=== PATIENT | male | born 1960 | race Caucasian/White ===

== ENCOUNTER 2016-10-26 14:30 | Emergency (ER) | payer MEDICARE, OTHER ==
[~2016-10-26] VITALS: Ht 188 cm; Wt 85.0 kg
[~2016-10-26 14:30] MED LIST: ACET500T68 PO; CHOL10003 PO; CYAN10005 IM; CYCL10TA2 PO; DIAZ5TAB4 PO; DIPH50CA PO; GABA600T2 PO; GABA800T2 PO; PHEN100C PO; QUET400T4 PO; RANI300T PO; SILD100T PO; TIZA4TAB PO; TRAZ50TA15 PO
[2016-10-26 15:09] LABS: BASO # 0.1 x10^3/uL (0.0-0.2); BASO % 1 % (0-3); EOS # 0.1 x10^3/uL (0.0-0.7); EOS % 1 % (0-3); HEMATOCRIT 52.9 % (39.0-53.0); HEMOGLOBIN 17.9 g/dL (13.0-17.5); LYMPH # 3.3 x10^3/uL (1.0-4.8); LYMPH % 27 % (24-48); MEAN CORPUSCULAR HEMOGLOBIN 32 pg (25-35); MEAN CORPUSCULAR HGB CONC 34 g/dL (31-37); MEAN CORPUSCULAR VOLUME 95 fL (79-100); MONO # 1.3 x10^3/uL (0.0-1.1); MONO % 11 % (0-9); NEUT # 7.5 x10^3uL (1.8-7.7); NEUT % 61 % (31-73); PLATELET COUNT 283 x10^3/uL (140-400); RED BLOOD COUNT 5.57 x10^6/uL (4.30-5.70); RED CELL DISTRIBUTION WIDTH 14.1 % (11.5-14.5); WHITE BLOOD COUNT 12.3 x10^3/uL (4.0-11.0)
[2016-10-26 15:16] LABS: ACETAMIN < 2.0 mcg/mL (10-30); ETHANOL 168 mg/dL (0-10); SALIC 3.4 mg/dL (2.8-20.0)
[2016-10-26 15:18] LABS: CALCIUM 9.3 mg/dL (8.5-10.1); CREATININE 1.3 mg/dL (0.7-1.3); GFR 57.3; POTASSIUM 3.5 mmol/L (3.5-5.1); TOTAL BILIRUBIN 0.3 mg/dL (0.2-1.0)
[2016-10-26 16:11] LABS: AMPHETAMINE/METHAMPHETAMINE NEG (NEG); BARBITURATES NEG (NEG); BENZODIAZEPINES POS (NEG); CANNABINOIDS NEG (NEG); COCAINE NEG (NEG); METHADONE NEG (NEG); OPIATES NEG (NEG); PHENCYCLIDINE NEG (NEG)
[2016-10-26 16:18] LABS: BILIRUBIN,URINE NEG (NEG); CLARITY,URINE CLEAR; COLOR,URINE YELLOW; GLUCOSE,URINE NEG (NEG); NITRITE,URINE NEG (NEG); UROBILINOGEN,URINE 0.2 mg/dL (0.2 mg/dL)
[2016-10-26 16:19] LABS: BACTERIA,URINE 0 /HPF (0-FEW)
--- NOTE | 2016-10-26 17:27 | ED.ADGEN ---
Past History Past Medical History: Anxiety, Bipolar, Depression, Hypertension, Other Past Surgical History: Other Alcohol Use: Occasionally Drug Use: None Adult General Chief Complaint Chief Complaint Suicidal ideation HPI HPI Patient is a 56 year old male who presents with suicidal ideation. He has long- standing depression and anxiety, PTSD. He takes Seroquel, Valium for his psychiatric disorders. He says he's having thoughts of hurting himself by overdosing on his pills or jumping from his patio window. Patient's been seen and treated from similar symptoms in the past. He denies any did her took anything to harm himself today. He is requesting to go to [place]. Review of Systems Review of Systems Constitutional: Denies fever or chills [] Eyes: Denies change in visual acuity, redness, or eye pain [] HENT: Denies nasal congestion or sore throat [] Respiratory: Denies cough or shortness of breath [] Cardiovascular: Denies chest pain GI: Denies abdominal pain, nausea, vomiting, bloody stools or diarrhea [] : Denies dysuria or hematuria [] Musculoskeletal: Denies back pain or joint pain [] Integument: Denies rash or skin lesions [] Neurologic: Denies headache, focal weakness or sensory changes [] Allergies Allergies Allergies Coded Allergies Type Severity Reaction Last Updated Verified Sulfa (Sulfonamide Antibiotics) Allergy Severe Unknown 06/13/15 Yes fluoxetine Allergy Intermediate rage 06/13/15 No risperidone Allergy Intermediate high anxiety 06/13/15 No topiramate Allergy Intermediate rage 06/13/15 No Physical Exam Physical Exam Constitutional: Well developed, well nourished, no acute distress, non-toxic appearance. [] HENT: Normocephalic, atraumatic, bilateral external ears normal, oropharynx moist, no oral exudates, nose normal. [] Eyes: PERRLA, EOMI, conjunctiva normal, no discharge. [] Neck: Normal range of motion, no tenderness, supple, no stridor. [] Cardiovascular:Heart rate regular rhythm, no murmur [] Lungs & Thorax: Bilateral breath sounds clear to auscultation [] Abdomen: Bowel sounds normal, soft, no tenderness, no masses, no pulsatile masses. [] Skin: Warm, dry, no erythema, no rash. [] Back: No tenderness, no CVA tenderness. [] Extremities: No tenderness, no cyanosis, no clubbing, ROM intact, no edema. [] Neurologic: Alert and oriented X 3, normal motor function, normal sensory function, no focal deficits noted. [] Psychologic: Suicidal, odd affect Current Patient Data Vital Signs Vital Signs Date Time Temp Pulse Resp B/P Pulse Ox O2 Delivery O2 Flow Rate FiO2 10/26/16 14:30 98.2 94 18 97 Room Air Lab Results Laboratory Tests Test 10/26/16 14:47 10/26/16 15:14 White Blood Count 12.3x10^3/uL (4.0-11.0) H Red Blood Count 5.57x10^6/uL (4.30-5.70) Hemoglobin 17.9g/dL (13.0-17.5) H Hematocrit 52.9% (39.0-53.0) Mean Corpuscular Volume 95fL (79-100) Mean Corpuscular Hemoglobin 32pg (25-35) Mean Corpuscular Hemoglobin Concent 34g/dL (31-37) Red Cell Distribution Width 14.1% (11.5-14.5) Platelet Count 283x10^3/uL (140-400) Neutrophils (%) (Auto) 61% (31-73) Lymphocytes (%) (Auto) 27% (24-48) Monocytes (%) (Auto) 11% (0-9) H Eosinophils (%) (Auto) 1% (0-3) Basophils (%) (Auto) 1% (0-3) Neutrophils # (Auto) 7.5x10^3uL (1.8-7.7) Lymphocytes # (Auto) 3.3x10^3/uL (1.0-4.8) Monocytes # (Auto) 1.3x10^3/uL (0.0-1.1) H Eosinophils # (Auto) 0.1x10^3/uL (0.0-0.7) Basophils # (Auto) 0.1x10^3/uL (0.0-0.2) Sodium Level 142mmol/L (136-145) Potassium Level 3.5mmol/L (3.5-5.1) Chloride Level 106mmol/L (98-107) Carbon Dioxide Level 21mmol/L (21-32) Anion Gap 15 (6-14) H Blood Urea Nitrogen 10mg/dL (8-26) Creatinine 1.3mg/dL (0.7-1.3) Estimated GFR (Cockcroft-Gault) 57.3 BUN/Creatinine Ratio 8 (6-20) Glucose Level 90mg/dL (70-99) Calcium Level 9.3mg/dL (8.5-10.1) Total Bilirubin 0.3mg/dL (0.2-1.0) Aspartate Amino Transferase (AST) 11U/L (15-37) L Alanine Aminotransferase (ALT) 20U/L (16-63) Alkaline Phosphatase 99U/L (46-116) Total Protein 8.0g/dL (6.4-8.2) Albumin 4.0g/dL (3.4-5.0) Albumin/Globulin Ratio 1.0 (1.0-1.7) Salicylates Level 3.4mg/dL (2.8-20.0) Salicylate Last Dose Date Unknown Salicylate Last Dose Time Unknown Acetaminophen Level < 2.0mcg/mL (10-30) L Acetaminophen Last Dose Date Unknown Acetaminophen Last Dose Time Unknown Ethyl Alcohol Level 168mg/dL (0-10) H Urine Collection Type Unknown Urine Color Yellow Urine Clarity Clear Urine pH 5.5 Urine Specific [place] 1.010 Urine Protein Trace (NEG-TRACE) Urine Glucose (UA) Negmg/dL (NEG) Urine Ketones (Stick) Negmg/dL (NEG) Urine Blood Neg (NEG) Urine Nitrite Neg (NEG) Urine Bilirubin Neg (NEG) Urine Urobilinogen Dipstick 0.2mg/dL (0.2 mg/dL) Urine Leukocyte Esterase Neg (NEG) Urine RBC 1-2/HPF (0-2) Urine WBC 1-4/HPF (0-4) Urine Squamous Epithelial Cells None/LPF Urine Bacteria 0/HPF (0-FEW) Urine Opiates Screen Neg (NEG) Urine Methadone Screen Neg (NEG) Urine Barbiturates Neg (NEG) Urine Phencyclidine Screen Neg (NEG) Urine Amphetamine/Methamphetamine Neg (NEG) Urine Benzodiazepines Screen Pos (NEG) Urine Cocaine Screen Neg (NEG) Urine Cannabinoids Screen Neg (NEG) Urine Ethyl Alcohol Pos (NEG) EKG EKG [] Radiology/Procedures Radiology/Procedures [] Course & Med Decision Making Course & Med Decision Making Pertinent Labs and Imaging studies reviewed. (See chart for details) Patient direct observation by staff. Labs and urine did not show any acute abnormalities. Contacted [place] to see if they would accept this patient. We are waiting return call from them. Care was transferred to Dr. Atkinson at 1730 Final Impression Final Impression suicidal ideation [] Problems: Dragon Disclaimer Dragon Disclaimer This electronic medical record was generated, in whole or in part, using a voice recognition dictation system. RENARD HARTMANN MD Oct 26, 2016 17:26
[2016-10-26 18:00] VITALS: BP 136/80
[2016-10-26] MEDS ORDERED: DIAZEPAM 5 MG TABLET PO ONE (18:00)
[2016-10-26] MEDS ORDERED: FAMOTIDINE 20 MG TABLET ONE (19:52)
[2016-10-26] MEDS ORDERED: SUCRALFATE 1 GM TABLET. PO ONE ×2 (19:56→20:00)
[2016-10-26] MEDS ORDERED: FAMOTIDINE 20 MG TABLET PO ONE (20:00)
== END 2016-10-26 21:31 | disposition short-term general hospital (02) ==
LOC: ER 14:30
DX: R45.851 Suicidal ideations (principal); F41.9 Anxiety disorder, unspecified; I10 Essential (primary) hypertension; F43.10 Post-traumatic stress disorder, unspecified; Z88.2 Allergy status to sulfonamides; Z88.8 Allergy status to other drugs, medicaments and biological substances; F31.9 Bipolar disorder, unspecified
CPT/HCPCS: 36415; 80053; 80305; 80320; 81001; 85027; 99285; G6038; G0480; G0481; 80196

== ENCOUNTER 2016-12-25 19:03 | Observation (INO) | payer MEDICARE, OTHER ==
[~2016-12-25] VITALS: Ht 188 cm; Wt 83.2 kg
[~2016-12-25 19:03] MED LIST changes: +CYCL-331 PO; -CYCL10TA2 PO
[2016-12-25] MEDS ORDERED: NITROGLYCERIN SUBLINGUAL 0.4 MG BOTTLE OF 25. SL PRN ×2 (19:15→21:15)
--- NOTE | 2016-12-25 19:20 | EKG ---
[address] [address] Test Date: 2016-12-25 Test Time: 19:17:48 Pat Name: ESTEBAN CONTRERAS Department: Room: Gender: M Continuous Improvement Specialist: : [id number] Requested By: NING BONILLA Order Number: [id number] Reading MD: Davion Noriega Measurements Intervals Strong Rate: 98 P: 46 VA: 146 QRS: -38 QRSD: 106 T: 43 QT: 352 QTc: 451 Interpretive Statements SINUS RHYTHM RBBB Electronically Signed On 12-27-2016 11:02:46 CDT by Davion Noriega
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
[2016-12-25] MEDS ORDERED: ASPIRIN 81 MG TAB.CHEW PO ONE (19:30)
[2016-12-25 20:05] LABS: BASO # 0.1 x10^3/uL (0.0-0.2); BASO % 1 % (0-3); EOS # 0.1 x10^3/uL (0.0-0.7); EOS % 1 % (0-3); HEMATOCRIT 49.2 % (39.0-53.0); HEMOGLOBIN 16.9 g/dL (13.0-17.5); LYMPH # 4.2 x10^3/uL (1.0-4.8); LYMPH % 41 % (24-48); MEAN CORPUSCULAR HEMOGLOBIN 32 pg (25-35); MEAN CORPUSCULAR HGB CONC 34 g/dL (31-37); MEAN CORPUSCULAR VOLUME 92 fL (79-100); MONO # 1.4 x10^3/uL (0.0-1.1); MONO % 14 % (0-9); NEUT # 4.4 x10^3uL (1.8-7.7); NEUT % 44 % (31-73); PLATELET COUNT 276 x10^3/uL (140-400); RED BLOOD COUNT 5.35 x10^6/uL (4.30-5.70); RED CELL DISTRIBUTION WIDTH 13.6 % (11.5-14.5); WHITE BLOOD COUNT 10.2 x10^3/uL (4.0-11.0)
[2016-12-25 20:09] LABS: AMPHETAMINE/METHAMPHETAMINE NEG (NEG); BARBITURATES NEG (NEG); BENZODIAZEPINES POS (NEG); CANNABINOIDS NEG (NEG); COCAINE NEG (NEG); METHADONE NEG (NEG); OPIATES NEG (NEG); PHENCYCLIDINE NEG (NEG)
[2016-12-25 20:12] LABS: BILIRUBIN,URINE NEG (NEG); CLARITY,URINE CLEAR; COLOR,URINE STRAW; GLUCOSE,URINE NEG (NEG); NITRITE,URINE NEG (NEG); UROBILINOGEN,URINE 0.2 mg/dL (0.2 mg/dL)
[2016-12-25 20:13] LABS: BACTERIA,URINE 0 /HPF (0-FEW); RBC,URINE 0 /HPF (0-2); SQUAMOUS EPITHELIAL CELL,UR OCC /LPF; WBC,URINE 0 /HPF (0-4)
[2016-12-25 20:14] LABS: ACETAMIN < 2.0 mcg/mL (10-30); SALIC 3.7 mg/dL (2.8-20.0)
[2016-12-25 20:17] LABS: ALBUMIN 3.8 g/dL (3.4-5.0); ALBUMIN/GLOBULIN RATIO 1.1 (1.0-1.7); CALCIUM 8.4 mg/dL (8.5-10.1); CREATININE 1.2 mg/dL (0.7-1.3); GFR 62.9; MAGNESIUM 2.2 mg/dL (1.8-2.4); TOTAL BILIRUBIN 0.5 mg/dL (0.2-1.0); TOTAL PROTEIN 7.2 g/dL (6.4-8.2)
[2016-12-25] MEDS ORDERED: POTASSIUM CHLORIDE 20 MEQ TABLET.ER. PO ONE (20:45)
[2016-12-25] MEDS ORDERED: MVI, ADULT NO.4 WITH VIT K 10 ML, FOLIC ACID SYRINGE for ER 1 MG, THIAMINE 100 MG in IV... IV SCH ×4 (20:45)
[2016-12-25] MEDS ORDERED: THIAMINE 200 MG/2 ML VIAL. IV ONE (21:06)
[2016-12-25] MEDS ORDERED: IV NORMAL SALINE 1,000ML 1,000 ML ONE (21:06)
[2016-12-25] MEDS ORDERED: FOLIC ACID 5 MG/ML SYRINGE for ER IV ONE (21:07)
[2016-12-25] MEDS ORDERED: MVI, ADULT NO.4 WITH VIT K 10 ML VIAL IV ONE (21:07)
[2016-12-25] MEDS ORDERED: ACETAMINOPHEN 325 MG TABLET PO PRN (21:15)
[2016-12-25] MEDS ORDERED: ONDANSETRON PF 4 MG/2 ML VIAL. IV PRN (21:15)
[2016-12-25 21:45] VITALS: BP 119/83
--- NOTE | 2016-12-25 21:45 | NUR ---
Pt admitted from ER to [address] [place] [address] room 111 for chest pain, Hypokalemia, SI and Etoh intox. Pt transferred via [facility] to unit by EMS accompanied by nursing staff. Pt self transferred from [facility] to bed with standby assist. Pt placed on Telemetry, S.Tach noted on monitor. VSS. Admission assessment competed. Pt was recently at [facility] for Seroquel overdose (09/28). Health history and home medications reviewed with pt. Pt can only remember 4 home medications and asked that we contact [place] for up-to-date list. Consent for release of infomation signed by pt and faxed to [place]. Pt lives home alone. SCDs for VTE. Pt UTD on pneumonia vaccine. IVF started and PO Potassium given per order. Pt given box lunch. SS/CM/Diet/RT consulted. Pt was given written information regarding hospital policies, unit procedures and contact persons. Valuables were checked and placed in pt locker. Pt is q15 min check for SI. Dr. Guerra consulted.
[2016-12-25] MEDS ORDERED: QUET200T PO (22:49)
[2016-12-25] MEDS ORDERED: TRAM50TA PO (22:49)
[2016-12-25] MEDS ORDERED: DIAZ10TA4 PO (22:49)
[2016-12-25] MEDS ORDERED: RANI150T2 PO (22:49)
[2016-12-25] MEDS: traMADol 50 MG TABLET PO SCH (23:10)
[2016-12-25] MEDS: IV NORMAL SALINE 1,000ML 1,000 ML IV SCH (23:10)
[2016-12-26] MEDS ORDERED: POTASSIUM CHLORIDE 20 MEQ TABLET.ER. PO SCH
[2016-12-26 05:15] VITALS: BP 129/83
[2016-12-26] MEDS: IV NORMAL SALINE 1,000ML 1,000 ML IV SCH ×2 (05:33→13:55)
[2016-12-26] MEDS: traMADol 50 MG TABLET PO SCH ×4 (05:34→23:44)
[2016-12-26] MEDS ORDERED: POTASSIUM CHLORIDE 20 MEQ TABLET.ER. PO ONE ×2 (06:00→12:00)
--- NOTE | 2016-12-26 08:05 | NUR ---
Consult: Routine consult called to [facility] cardiology. Patient will be seen today.
[2016-12-26 08:32] LABS: BASO # 0.1 x10^3/uL (0.0-0.2); BASO % 1 % (0-3); EOS # 0.1 x10^3/uL (0.0-0.7); EOS % 1 % (0-3); HEMATOCRIT 44.8 % (39.0-53.0); HEMOGLOBIN 15.2 g/dL (13.0-17.5); LYMPH # 2.7 x10^3/uL (1.0-4.8); LYMPH % 28 % (24-48); MEAN CORPUSCULAR HEMOGLOBIN 31 pg (25-35); MEAN CORPUSCULAR HGB CONC 34 g/dL (31-37); MEAN CORPUSCULAR VOLUME 92 fL (79-100); MONO # 1.2 x10^3/uL (0.0-1.1); MONO % 12 % (0-9); NEUT # 5.6 x10^3uL (1.8-7.7); NEUT % 58 % (31-73); PLATELET COUNT 227 x10^3/uL (140-400); RED BLOOD COUNT 4.86 x10^6/uL (4.30-5.70); RED CELL DISTRIBUTION WIDTH 13.3 % (11.5-14.5); WHITE BLOOD COUNT 9.7 x10^3/uL (4.0-11.0)
--- NOTE | 2016-12-26 08:44 | RAD ---
AP portable chest radiograph 12/25/2016 Clinical History: Chest pain and shortness of breath. An AP portable erect digital radiograph of the chest was obtained. Comparison study is dated 07/19/2016. The cardiac silhouette is normal in size. The thoracic aorta is mildly tortuous. No acute pulmonary infiltrate is noted. Noted pleural effusion or pneumothorax is seen. Degenerative changes are seen involving the thoracic spine and both shoulders. Impression: No acute abnormality is seen.
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
[2016-12-26 08:55] LABS: ALBUMIN 3.2 g/dL (3.4-5.0); ALBUMIN/GLOBULIN RATIO 1.1 (1.0-1.7); CREATININE 1.1 mg/dL (0.7-1.3); GFR 69.5; POTASSIUM 3.9 mmol/L (3.5-5.1); TOTAL BILIRUBIN 0.7 mg/dL (0.2-1.0); TOTAL PROTEIN 6.2 g/dL (6.4-8.2)
[2016-12-26] MEDS: QUEtiapine 100 MG TABLET. PO SCH ×2 (09:41→12:54)
[2016-12-26] MEDS: FAMOTIDINE 20 MG TABLET PO SCH (09:41)
[2016-12-26] MEDS: diazePAM 5 MG TABLET PO SCH ×2 (09:42→12:54)
[2016-12-26] MEDS: NICOTINE POLACRILEX GUM 2 MG GUM. BC PRN (11:17)
[2016-12-26 11:33] VITALS: BP 122/84
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
--- NOTE | 2016-12-26 15:59 | CARD ---
APPROVED REPORT EXAM: Two-dimensional and M-mode echocardiogram with Doppler and color Doppler. Other Information Quality : GoodHR: 88bpm Rhythm : NSR INDICATION Chest Pain 2D DIMENSIONS RVDd2.6 (2.9-3.5cm)Left Atrium(2D)2.8 (1.6-4.0cm) IVSd1.0 (0.7-1.1cm)Aortic Root(2D)3.1 (2.0-3.7cm) LVDd4.3 (3.9-5.9cm)LVOT Diameter2.4 (1.8-2.4cm) PWd0.9 (0.7-1.1cm)LVDs3.0 (2.5-4.0cm) FS (%) 29.7 %SV47.7 ml LVEF(%)57.1 (>50%) Aortic Valve AoV Peak Ashu.103.3cm/sAoV VTI19.9cm AO Peak GR.4.3mmHgLVOT Peak Ashu.106.2cm/s LVOT VTI 19.27cmAO Mean GR.2mmHg STEPHANIE (VMAX)4.60cp5NOQ (VTI)4.46cm2 Mitral Valve MV E Irvlwkea17.2cm/sMV E Peak Gr.3mmHg MV DECEL [id number] A Yhndrvnx82.2cm/s MV E Mean Gr.1mmHgE/A Ratio0.7 MV A Qugpsywp70uh Pulmonary Valve PV Peak Cdtnvmwz819.0cm/sPV Peak Grad.4mmHg Tricuspid Valve TR P. Ekrnpguh173rg/sTR Peak Gr.26mmHg Pulmonary Vein S1 Lqivfnqx61.6cm/sD2 Flbcjmlu07.6cm/s LEFT VENTRICLE The left ventricle is normal size. There is normal left ventricular wall thickness. The left ventricu lar systolic function is normal and the ejection fraction is within normal range. The Ejection Fracti on is 55-60%. There is normal LV segmental wall motion. Transmitral Doppler flow pattern is Grade I-a bnormal relaxation pattern. RIGHT VENTRICLE The right ventricle is normal size. There is normal right ventricular wall thickness. The right ventr icular systolic function is normal. ATRIA The left atrium size is normal. The right atrium size is normal. The interatrial septum is intact wit h no evidence for an atrial septal defect or patent foramen ovale as noted on 2-D or Doppler imaging. AORTIC VALVE The aortic valve is mildly thickened. The aortic valve is trileaflet. Doppler and Color Flow revealed no significant aortic regurgitation. There is no significant aortic valvular stenosis. MITRAL VALVE The mitral valve leaflets are mildly thickened. There is no evidence of mitral valve prolapse. There is no mitral valve stenosis. Doppler and Color Flow revealed trace mitral regurgitation. TRICUSPID VALVE Doppler and Color Flow revealed trace tricuspid regurgitation. The pulmonary artery systolic pressure is estimated at 29 mmHg. PULMONIC VALVE Doppler and Color Flow revealed trace pulmonic valvular regurgitation. There is no pulmonic valvular stenosis. GREAT VESSELS The aortic root is normal in size. The ascending aorta is normal in size. The pulmonary artery is nor mal. The IVC is normal in size and collapses >50% with inspiration. PERICARDIAL EFFUSION There is no evidence of significant pericardial effusion. Critical Notification Critical Value: No <Conclusion> The left ventricle is normal size. The left ventricular systolic function is normal and the ejection fraction is within normal range. The Ejection Fraction is 55-60%. There is no significant aortic valvular stenosis. Doppler and Color Flow revealed no significant aortic regurgitation. Doppler and Color Flow revealed trace mitral regurgitation. Doppler and Color Flow revealed trace tricuspid regurgitation. The pulmonary artery systolic pressure is estimated at 29 mmHg.
[2016-12-26 16:03] VITALS: BP 117/70
[2016-12-26 19:25] VITALS: BP 120/69
--- NOTE | 2016-12-26 20:03 | PDOC ---
Exam Darryl Demential Exam: Darryl Note: Please also refer to the separate dictated note~for this date of service dictated separately.~Patient seen individually. Discussed the patient with Nursing staff reviewed the chart.~Reviewed interim history and current functioning. Reviewed vital signs,~Labs/ Radiology~and current medications noted below. Continue current treatment with the changes noted in the dictated addendum note Assessment: Vital Signs: Vital Signs Date Time Temp Pulse Resp B/P (MAP) Pulse Ox O2 Delivery O2 Flow Rate FiO2 12/26/16 19:25 97.7 75 18 120/69 (86) 94 12/26/16 18:47 Room Air I&O Intake and Output 12/26/16 07:00 Intake Total 3380.2 ml Output Total 350 ml Balance 3030.2 ml Intake Oral 1570 ml IV Total 1810.2 ml Output Urine Total 350 ml # Voids 1 # Bowel Movements 1 Labs: Laboratory Tests Test 12/26/16 02:00 12/26/16 08:16 Troponin I Quantitative < 0.017 ng/mL (0-0.055) < 0.017 ng/mL (0-0.055) White Blood Count 9.7 x10^3/uL (4.0-11.0) Red Blood Count 4.86 x10^6/uL (4.30-5.70) Hemoglobin 15.2 g/dL (13.0-17.5) Hematocrit 44.8 % (39.0-53.0) Mean Corpuscular Volume 92 fL (79-100) Mean Corpuscular Hemoglobin 31 pg (25-35) Mean Corpuscular Hemoglobin Concent 34 g/dL (31-37) Red Cell Distribution Width 13.3 % (11.5-14.5) Platelet Count 227 x10^3/uL (140-400) Neutrophils (%) (Auto) 58 % (31-73) Lymphocytes (%) (Auto) 28 % (24-48) Monocytes (%) (Auto) 12 % (0-9) H Eosinophils (%) (Auto) 1 % (0-3) Basophils (%) (Auto) 1 % (0-3) Neutrophils # (Auto) 5.6 x10^3uL (1.8-7.7) Lymphocytes # (Auto) 2.7 x10^3/uL (1.0-4.8) Monocytes # (Auto) 1.2 x10^3/uL (0.0-1.1) H Eosinophils # (Auto) 0.1 x10^3/uL (0.0-0.7) Basophils # (Auto) 0.1 x10^3/uL (0.0-0.2) Sodium Level 140 mmol/L (136-145) Potassium Level 3.9 mmol/L (3.5-5.1) Chloride Level 106 mmol/L (98-107) Carbon Dioxide Level 27 mmol/L (21-32) Anion Gap 7 (6-14) Blood Urea Nitrogen 11 mg/dL (8-26) Creatinine 1.1 mg/dL (0.7-1.3) Estimated GFR (Cockcroft-Gault) 69.5 BUN/Creatinine Ratio 10 (6-20) Glucose Level 93 mg/dL (70-99) Calcium Level 8.0 mg/dL (8.5-10.1) L Total Bilirubin 0.7 mg/dL (0.2-1.0) Aspartate Amino Transferase (AST) 21 U/L (15-37) Alanine Aminotransferase (ALT) 32 U/L (16-63) Alkaline Phosphatase 86 U/L (46-116) Total Protein 6.2 g/dL (6.4-8.2) L Albumin 3.2 g/dL (3.4-5.0) L Albumin/Globulin Ratio 1.1 (1.0-1.7) Triglycerides Level 137 mg/dL (0-150) Cholesterol Level 109 mg/dL (0-200) LDL Cholesterol, Calculated 47 mg/dL (0-100) VLDL Cholesterol, Calculated 27 mg/dL (0-40) Non-HDL Cholesterol Calculated 74 mg/dL (0-129) HDL Cholesterol 35 mg/dL (40-60) L Cholesterol/HDL Ratio 3.0 Ethyl Alcohol Level < 10 mg/dL (0-10) Current Medications: Meds: Current Medications Aspirin (Children'S Aspirin) 324 mg 1X ONCE PO Last administered on 12/25/16t 20:14; Start 12/25/16 at 19:30; Stop 12/25/16 at 19:31; Status DC Nitroglycerin (Nitrostat) 0.4 mg PRN Q5MIN PRN SL CP RATING > 1/10 Last administered on 12/25/16 20:14; Start 12/25/16 at 19:15; Stop 12/26/16 at 19:14 ; Status DC Multivitamins/ Minerals 10 ml/ Folic Acid 1 mg/ Thiamine HCl 100 mg/Sodium Chloride 1,011.2 ml @ 1,000 mls/ hr Q1H IV Last administered on 12/25/16 21: 14; Start 12/25/16 at 20:45; Stop 12/25/16 at 21:15; Status DC Potassium Chloride (Klor-Con) 40 meq 1X ONCE PO Last administered on 21:14; Start 12/25/16 at 20:45; Stop 12/25/16 at 20:46; Status DC Sodium Chloride 1,000 ml @ As Directed STK-MED ONCE .ROUTE ; Start 12/25/16 at 21:06; Stop 12/25/16 at 21:07; Status DC Thiamine HCl 200 mg STK-MED ONCE IV ; Start 12/25/16 at 21:06; Stop 12/25/16 at 21:07; Status DC Multivitamins/ Minerals (Infuvite Adult) 10 ml STK-MED ONCE IV ; Start 12/25/16 at 21:07; Stop 12/25/16 at 21:08; Status DC Folic Acid 5 mg STK-MED ONCE IV ; Start 12/25/16 at 21:07; Stop 12/25/16 at 21: 08; Status DC Ondansetron HCl (Zofran) 4 mg PRN Q4HRS PRN IV NAUSEA/VOMITING; Start 12/25/16 at 21:15; Stop 12/26/16 at 21:14 Sodium Chloride 1,000 ml @ 120 mls/hr Q8H20M IV Last administered on 05:33; Start 12/25/16 at 21:15; Stop 12/26/16 at 21:14 Acetaminophen (Tylenol) 650 mg PRN Q4HRS PRN PO FEVER; Start 12/25/16 at 21:15 ; Stop 12/26/16 at 21:14 Nitroglycerin (Nitrostat) 0.4 mg PRN Q5MIN PRN SL CHEST PAIN; Start 12/25/16 at 21:15; Stop 12/25/16 at 21:22; Status DC Tramadol HCl (Ultram) 100 mg Q6HRS PO Last administered on 12/26/16 17:46; Start 12/26/16 at 00:00 Potassium Chloride (Klor-Con) 20 meq Q6HRS PO Last administered on 12/25/16 23 :40; Start 12/26/16 at 00:00; Stop 12/26/16 at 05:26; Status DC Potassium Chloride (Klor-Con) 20 meq 1X ONCE PO Last administered on 06:03; Start 12/26/16 at 06:00; Stop 12/26/16 at 06:02; Status DC Potassium Chloride (Klor-Con) 20 meq 1X ONCE PO Last administered on 12:54; Start 12/26/16 at 12:00; Stop 12/26/16 at 12:01; Status DC Diazepam (Valium) 20 mg BIDACBL PO Last administered on 12/26/16 12:54; Start 12/26/16 at 09:00 Quetiapine Fumarate (SEROquel) 400 mg BIDACBL PO Last administered on 12:54; Start 12/26/16 at 09:00 Famotidine (Pepcid) 40 mg DAILY PO Last administered on 12/26/16 09:41; Start 12/26/16 at 09:00 Aspirin (Aspirin Enteric Coated) 81 mg DAILYWBKFT PO ; Start 12/27/16 at 08:00 Nicotine Polacrilex (Nicorette Gum) 2 mg PRN Q1HR PRN BC SMOKING CESSATION Last administered on 12/26/16 11:17; Start 12/26/16 at 10:45 Active Scripts Active Reported Quetiapine Fumarate 200 Mg Tablet 400 Mg PO BIDACBL LAST DOSE GIVEN: DATE: TIME: NEXT DOSE DUE: DATE: TIME: Tramadol Hcl (Tramadol HCl) 50 Mg Tablet 100 Mg PO Q6HRS LAST DOSE GIVEN: DATE: TIME: NEXT DOSE DUE: DATE: TIME: Diazepam 10 Mg Tablet 20 Mg PO BIDACBL LAST DOSE GIVEN: DATE: TIME: NEXT DOSE DUE: DATE: TIME: Ranitidine Hcl 300 Mg Tablet 300 Mg PO DAILY LAST DOSE GIVEN: DATE: TIME: NEXT DOSE DUE: DATE: TIME: Diagnosis: Problems: (1) Suicidal ideation DOM SWANN MD Dec 26, 2016 20:03
[2016-12-26 23:33] VITALS: BP 111/76
[2016-12-27] MEDS: traMADol 50 MG TABLET PO SCH (05:33)
[2016-12-27 05:40] VITALS: BP 122/71
[2016-12-27 06:29] LABS: BASO % 1 % (0-3); EOS # 0.2 x10^3/uL (0.0-0.7); EOS % 2 % (0-3); HEMATOCRIT 43.3 % (39.0-53.0); HEMOGLOBIN 14.5 g/dL (13.0-17.5); LYMPH # 3.3 x10^3/uL (1.0-4.8); LYMPH % 37 % (24-48); MEAN CORPUSCULAR HEMOGLOBIN 31 pg (25-35); MEAN CORPUSCULAR HGB CONC 34 g/dL (31-37); MEAN CORPUSCULAR VOLUME 93 fL (79-100); MONO # 0.8 x10^3/uL (0.0-1.1); MONO % 9 % (0-9); NEUT # 4.7 x10^3uL (1.8-7.7); NEUT % 52 % (31-73); PLATELET COUNT 187 x10^3/uL (140-400); RED BLOOD COUNT 4.65 x10^6/uL (4.30-5.70); RED CELL DISTRIBUTION WIDTH 13.7 % (11.5-14.5)
--- NOTE | 2016-12-27 06:34 | ACF ---
Admission Criteria Forms PSYCHIATRIC DISORDERS Clinical Indications for Inpatient Care (Place 'X' for any and all applicable criteria): Ongoing inpatient care may be needed for 1 or more of the following(1)(2)(3)(4)( 6)(7)(8): [ ]I. Danger to self or others not manageable at lower level of care. [ ]II. Grave disability (eg, inability to perform self care necessary at lower level of care) [ ]III. Agitation or inappropriate behavior interfering with care for primary condition (eg, attempting to discontinue lines or drains prematurely, unable to cooperate with respiratory care) [ ]IV. Severe disability or disorder indicated by ALL of the following: [ ]a) Severe behavioral health disorder-related symptoms or condition indicated by 1 or more of the following: [ ]i) Severe problem with cognition, memory, judgment, or impulse control [ ]ii) Severe clinical manifestations (eg, hallucinations, delusions, other acute psychotic symptoms, marlys, extreme agitation or anxiety) [ ]b) Patient management at lower level of care is not feasible until acute intervention or modification is initiated. Extended stay beyond goal length of stay for the primary condition may be needed untilALLof the following are present(1)(2)(3)(4)(722)(23): [ ]a) Danger to self or others is absent or manageable at lower level of care [ ]b) Behavior crisis management, including physical or chemical restraints, is required and is not available at a lower level of care. [ ]c) Behavioral symptoms (e.g., agitation, somnolence, inappropriate behavior) are present, and are not manageable at a lower level of care. [ ]d) Patient cannot understand follow-up treatment and crisis plan. [ ]e) Provider and supports are sufficiently available at lower level of care. [ ]f) Patient can participate (e.g., verify absence of plan for harm) and is in needed of monitoring. The original ensembli content created by [employer] has been revised. The portions of the content which have been revised are identified through the use of italic text, and [employer] has neither reviewed nor approved the modified material. All other unmodified content is copyright [facility] [employer]. Please see references footnoted in the original [facility] edition 2015 TOOTIE LAMB Dec 27, 2016 06:34
[2016-12-27 06:39] LABS: ALBUMIN 2.9 g/dL (3.4-5.0); GFR 77.6; MAGNESIUM 1.9 mg/dL (1.8-2.4); POTASSIUM 3.7 mmol/L (3.5-5.1); TOTAL BILIRUBIN 0.5 mg/dL (0.2-1.0); TOTAL PROTEIN 5.9 g/dL (6.4-8.2)
[2016-12-27] MEDS ORDERED: ASPI-612 PO (07:41)
[2016-12-27] MEDS: NICOTINE POLACRILEX GUM 2 MG GUM. BC PRN (07:55)
[2016-12-27] MEDS ORDERED: ASPIRIN ENTERIC COATED 81 MG TABLET.DR. PO SCH (08:00)
[2016-12-27] MEDS: diazePAM 5 MG TABLET PO SCH (08:15)
[2016-12-27] MEDS: FAMOTIDINE 20 MG TABLET PO SCH (08:15)
[2016-12-27] MEDS: QUEtiapine 100 MG TABLET. PO SCH (08:15)
--- NOTE | 2016-12-27 10:31 | NUR ---
Discharge Note: ESTEBAN CONTRERAS Discharge instructions and discharge home medications reviewed with Patient and a copy given. All questions have been answered and understanding verbalized. The following instructions and handouts were given: MED LIST, SUICIDE IDEATION INFO, AND ALCOHOL USE INFORMATION Discontinued lines and drains: IV DISCONTINUED 12/26/2016 PER JANICE SAM RN. Patient discharged to HOME with SELF via AMBULATION
--- NOTE | 2016-12-27 10:50 | DS ---
DATE OF DISCHARGE: 12/27/2016 DISCHARGE DIAGNOSES: 1. Suicidal ideation now resolved. 2. Major depressive disorder. 3. Chest pain, myocardial infarction ruled out. 4. Bipolar disorder. 5. Hypertension. 6. Posttraumatic stress disorder. 7. Heavy tobacco use disorder. 8. Alcohol relapse. HOSPITAL COURSE: This is a 56-year-old male who has had multiple trips to the Emergency Room complaining of suicidal ideation. He has had several stays at [facility] and inquires for his stay there were basically the facility stated that since he has been there so many times they are no longer able to meet his needs. They did inform him of that and he was not desires of going to any other facility. He was seen by Dr. Guerra as well. He exhibited no suicidal ideation or behavior while in the hospital. He is in the process of being admitted from his apartment into assisted living. He had some chest pain, which has been ongoing on and off and has had completely negative cardiac cath back in 2012. He declined to have a stress test done. PHYSICAL EXAMINATION: VITAL SIGNS: On the day of discharge, blood pressure 122/71, pulse 82, respirations 20, temperature 97.8, and pulse ox 97% on room air. GENERAL: He is alert, calm, and cooperative and making rationale decisions. Please note Lucie Juarez was witnessed everything that we discussed. PLAN: Plan is to for him to be discharged back to home. He will be coordinating with someone regarding his assisted living. He does have meals that will be available for him and return if he has any issues. He will be discharged on the same medications; notes medication changes except first started on aspirin today. NANDA JETER DO DR: EDMUND/ruperto JOB#: [id number] / [id number]
== END 2016-12-27 09:30 | disposition home or self-care (01) ==
LOC: ER 19:03 → 1 SOUTH 21:10
PROVIDERS: ADMIT Family Medicine; ATTEND Family Medicine
DX: R45.851 Suicidal ideations (principal); R07.89 Other chest pain; R53.83 Other fatigue; R94.31 Abnormal electrocardiogram [ECG] [EKG]; F31.9 Bipolar disorder, unspecified; I10 Essential (primary) hypertension; F43.10 Post-traumatic stress disorder, unspecified; F41.9 Anxiety disorder, unspecified; G40.909 Epilepsy, unspecified, not intractable, without status epilepticus; F20.9 Schizophrenia, unspecified; F17.210 Nicotine dependence, cigarettes, uncomplicated; J44.9 Chronic obstructive pulmonary disease, unspecified; F10.10 Alcohol abuse, uncomplicated; G62.9 Polyneuropathy, unspecified; K21.9 Gastro-esophageal reflux disease without esophagitis; Z85.828 Personal history of other malignant neoplasm of skin; Z91.5 Personal history of self-harm; Z87.820 Personal history of traumatic brain injury; Z82.49 Family history of ischemic heart disease and other diseases of the circulatory system
CPT/HCPCS: 36415; 71010; 80053; 80061; 81001; 82550; 83690; 83735; 83880; 84484; 85027; 85379; 85610; 85730; 93005; 93306; 96361; 96365; 96366; 99285; 99406; G0378; G0480; G0481; J3411; J7030; J9999; G0379

== ENCOUNTER 2018-04-27 10:29 | Inpatient (IN) | payer MEDICARE, OTHER ==
[~2018-04-27] VITALS: Ht 188 cm; Wt 85.7 kg
[~2018-04-27 10:29] MED LIST changes: +ASPI-612 PO; +DIAZ10TA4 PO; +QUET200T PO; +RANI150T2 PO; +TRAM50TA PO; +TRAZ-85 PO; -TRAZ50TA15 PO
[2018-04-27 11:07] LABS: BASO # 0.1 x10^3/uL (0.0-0.2); BASO % 1 % (0-3); EOS # 0.1 x10^3/uL (0.0-0.7); EOS % 1 % (0-3); HEMOGLOBIN 17.1 g/dL (13.0-17.5); LYMPH # 2.4 x10^3/uL (1.0-4.8); LYMPH % 22 % (24-48); MEAN CORPUSCULAR HEMOGLOBIN 34 pg (25-35); MEAN CORPUSCULAR HGB CONC 35 g/dL (31-37); MEAN CORPUSCULAR VOLUME 97 fL (79-100); MONO % 10 % (0-9); NEUT # 7.2 x10^3uL (1.8-7.7); NEUT % 67 % (31-73); PLATELET COUNT 221 x10^3/uL (140-400); RED BLOOD COUNT 5.07 x10^6/uL (4.30-5.70); RED CELL DISTRIBUTION WIDTH 14.5 % (11.5-14.5); WHITE BLOOD COUNT 10.7 x10^3/uL (4.0-11.0)
--- NOTE | 2018-04-27 11:13 | EKG ---
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
[2018-04-27 11:17] LABS: ETHANOL 119 mg/dL (0-10); SALIC 3.9 mg/dL (2.8-20.0)
[2018-04-27 11:18] LABS: ACETAMIN < 2.0 mcg/mL (10-30)
[2018-04-27 11:19] LABS: ALBUMIN 3.7 g/dL (3.4-5.0); CALCIUM 8.4 mg/dL (8.5-10.1); DIRECT BILIRUBIN 0.1 mg/dL (0.0-0.2); GFR 77.3; MAGNESIUM 1.9 mg/dL (1.8-2.4); POTASSIUM 3.2 mmol/L (3.5-5.1); TOTAL BILIRUBIN 0.4 mg/dL (0.2-1.0)
[2018-04-27 11:38] LABS: BARBITURATES NEG (NEG); BENZODIAZEPINES NEG (NEG); CANNABINOIDS NEG (NEG); COCAINE NEG (NEG); METHADONE NEG (NEG); OPIATES NEG (NEG); PHENCYCLIDINE NEG (NEG)
[2018-04-27 11:39] LABS: AMPHETAMINE/METHAMPHETAMINE NEG (NEG)
[2018-04-27 11:41] LABS: BILIRUBIN,URINE NEG (NEG); CLARITY,URINE HAZY; COLOR,URINE YELLOW; GLUCOSE,URINE NEG (NEG)
[2018-04-27 11:42] LABS: AMORPHOUS SEDIMENT,UR PRESENT /HPF; BACTERIA,URINE FEW /HPF (0-FEW); NITRITE,URINE NEG (NEG); SQUAMOUS EPITHELIAL CELL,UR OCC /LPF; UROBILINOGEN,URINE 1 mg/dL (0.2 mg/dL)
[2018-04-27] MEDS ORDERED: IV NORMAL SALINE 1,000ML 1,000 ML IV ONE (11:45)
[2018-04-27] MEDS: MVI, ADULT NO.4 WITH VIT K 10 ML, FOLIC ACID SYRINGE for ER 1 MG, THIAMINE INJ 100 MG i... IV ONE ×8 (13:00→13:03)
[2018-04-27] MEDS ORDERED: LORazepam 2 MG/ML VIAL ONE (15:24)
[2018-04-27] MEDS ORDERED: LORazepam 2 MG/ML VIAL IV ONE (15:45)
--- NOTE | 2018-04-27 17:10 | PHYS DOC ---
Past History Past Medical History: Alcoholism, Anxiety, Bipolar, Depression, Hypertension, Prostatitis, Seizure Past Surgical History: Other Smoking: Cigarettes Alcohol Use: Heavy Drug Use: None Adult General Chief Complaint Chief Complaint: SUICDAL IDEATION HPI HPI Patient is a 57 year old male who presents with complaining of suicidal ideation for 2 months. Patient states he had increase of suicidal thoughts with plan to hang himself or taking overdose of pills. Patient states he started drinking alcohol heavily for the last 3 months and had several shots of rum today. Patient states he was [facility] because of suicidal ideation and had change of his medication without improvement of his condition. Patient denies homicidal ideation and hallucination and using illegal drugs. Review of Systems Review of Systems Constitutional: Denies fever or chills [] Eyes: Denies change in visual acuity, redness, or eye pain [] HENT: Denies nasal congestion or sore throat [] Respiratory: Denies cough or shortness of breath [] Cardiovascular: No additional information not addressed in HPI [] GI: Denies abdominal pain, nausea, vomiting, bloody stools or diarrhea [] : Denies dysuria or hematuria [] Musculoskeletal: Denies back pain or joint pain [] Integument: Denies rash or skin lesions [] Neurologic: Denies headache, focal weakness or sensory changes [] Endocrine: Denies polyuria or polydipsia [] All other systems were reviewed and found to be within normal limits, except as documented in this note. Current Medications Current Medications Current Medications Medications (Trade) Dose Ordered Sig/Gordon Start Time Stop Time Status Last Admin Dose Admin Lorazepam (Ativan) 1 mg 1X ONCE 04/27/18 15:45 04/27/18 15:57 DC 04/27/18 15:52 1 MG Multivitamins/ Minerals 10 ml/ Folic Acid 1 mg/ Thiamine HCl 100 mg/Sodium Chloride 1,011.1 ml @ 1,000 mls/ hr 1X ONCE 04/27/18 13:00 04/27/18 14:00 DC Sodium Chloride 1,000 ml @ 1,000 mls/hr 1X ONCE 04/27/18 11:45 04/27/18 12:44 DC 04/27/18 11:56 1,000 MLS/HR Allergies Allergies Allergies Coded Allergies Type Severity Reaction Last Updated Verified Sulfa (Sulfonamide Antibiotics) Allergy Severe Unknown 06/13/15 Yes fluoxetine Allergy Intermediate rage 06/13/15 No risperidone Allergy Intermediate high anxiety 06/13/15 No topiramate Allergy Intermediate rage 06/13/15 No Physical Exam Physical Exam Constitutional: Well developed, well nourished, no acute distress, non-toxic appearance, smell of alcohol on breath. [] HENT: Normocephalic, atraumatic, oropharynx moist, no oral exudates, nose normal. [] Eyes: PERRLA, EOMI, conjunctiva normal, no discharge. [] Neck: Normal range of motion, no tenderness, supple, no stridor. [] Cardiovascular:Heart rate regular rhythm, no murmur [] Lungs & Thorax: Bilateral breath sounds clear to auscultation [] Abdomen: Bowel sounds normal, soft, no tenderness, no masses, no pulsatile masses. [] Skin: Warm, dry, no erythema, no rash. [] Back: No tenderness, no CVA tenderness. [] Extremities: No tenderness, no cyanosis, no clubbing, ROM intact, no edema. [] Neurologic: Alert and oriented X 3, normal motor function, normal sensory function, no focal deficits noted. [] Psychologic: Affect normal, judgement normal, suicidal ideation. Current Patient Data Vital Signs Vital Signs Date Time Temp Pulse Resp B/P (MAP) Pulse Ox O2 Delivery O2 Flow Rate FiO2 04/27/18 10:29 98.3 111 22 98 Room Air Lab Results Laboratory Tests Test 04/27/18 10:53 04/27/18 11:20 04/27/18 12:56 White Blood Count 10.7 x10^3/uL (4.0-11.0) Red Blood Count 5.07 x10^6/uL (4.30-5.70) Hemoglobin 17.1 g/dL (13.0-17.5) Hematocrit 49.0 % (39.0-53.0) Mean Corpuscular Volume 97 fL (79-100) Mean Corpuscular Hemoglobin 34 pg (25-35) Mean Corpuscular Hemoglobin Concent 35 g/dL (31-37) Red Cell Distribution Width 14.5 % (11.5-14.5) Platelet Count 221 x10^3/uL (140-400) Neutrophils (%) (Auto) 67 % (31-73) Lymphocytes (%) (Auto) 22 % (24-48) L Monocytes (%) (Auto) 10 % (0-9) H Eosinophils (%) (Auto) 1 % (0-3) Basophils (%) (Auto) 1 % (0-3) Neutrophils # (Auto) 7.2 x10^3uL (1.8-7.7) Lymphocytes # (Auto) 2.4 x10^3/uL (1.0-4.8) Monocytes # (Auto) 1.0 x10^3/uL (0.0-1.1) Eosinophils # (Auto) 0.1 x10^3/uL (0.0-0.7) Basophils # (Auto) 0.1 x10^3/uL (0.0-0.2) Prothrombin Time 9.7 SEC (9.4-11.4) Prothrombin Time INR 1.0 (0.9-1.1) PTT 27 SEC (23-33) Sodium Level 143 mmol/L (136-145) Potassium Level 3.2 mmol/L (3.5-5.1) L Chloride Level 104 mmol/L (98-107) Carbon Dioxide Level 22 mmol/L (21-32) Anion Gap 17 (6-14) H Blood Urea Nitrogen 7 mg/dL (8-26) L Creatinine 1.0 mg/dL (0.7-1.3) Estimated GFR (Cockcroft-Gault) 77.3 Glucose Level 98 mg/dL (70-99) Calcium Level 8.4 mg/dL (8.5-10.1) L Magnesium Level 1.9 mg/dL (1.8-2.4) Total Bilirubin 0.4 mg/dL (0.2-1.0) Direct Bilirubin 0.1 mg/dL (0.0-0.2) Aspartate Amino Transferase (AST) 28 U/L (15-37) Alanine Aminotransferase (ALT) 33 U/L (16-63) Alkaline Phosphatase 122 U/L (46-116) H Total Protein 7.0 g/dL (6.4-8.2) Albumin 3.7 g/dL (3.4-5.0) Salicylates Level 3.9 mg/dL (2.8-20.0) Salicylate Last Dose Date Unknown Salicylate Last Dose Time Unknown Acetaminophen Level < 2.0 mcg/mL (10-30) L Acetaminophen Last Dose Date Unknown Acetaminophen Last Dose Time Unknown Ethyl Alcohol Level 119 mg/dL (0-10) H 77 mg/dL (0-10) H Urine Collection Type Unknown Urine Color Yellow Urine Clarity Hazy Urine pH 7.0 Urine Specific [place] 1.020 Urine Protein Trace (NEG-TRACE) Urine Glucose (UA) Neg mg/dL (NEG) Urine Ketones (Stick) Neg mg/dL (NEG) Urine Blood Trace (NEG) Urine Nitrite Neg (NEG) Urine Bilirubin Neg (NEG) Urine Urobilinogen Dipstick 1 mg/dL (0.2 mg/dL) Urine Leukocyte Esterase Neg (NEG) Urine RBC 3-5 /HPF (0-2) Urine WBC 1-4 /HPF (0-4) Urine Squamous Epithelial Cells Occ /LPF Urine Amorphous Sediment Present /HPF Urine Bacteria Few /HPF (0-FEW) Urine Mucus Mod /LPF Urine Opiates Screen Neg (NEG) Urine Methadone Screen Neg (NEG) Urine Barbiturates Neg (NEG) Urine Phencyclidine Screen Neg (NEG) Urine Amphetamine/Methamphetamine Neg (NEG) Urine Benzodiazepines Screen Neg (NEG) Urine Cocaine Screen Neg (NEG) Urine Cannabinoids Screen Neg (NEG) Urine Ethyl Alcohol Pos (NEG) EKG EKG EKG interpreted by me. EKG at 1106 showed sinus rhythm at rate of 95, incomplete right bundle-branch block, no acute ST and T-wave abnormalities[] Radiology/Procedures Radiology/Procedures [] Course & Med Decision Making Course & Med Decision Making Pertinent Labs reviewed. (See chart for details) Evaluation of patient in ER showed 57-year-old male patient complaining of suicidal ideation. Patient had alcohol abuse for several months with blood alcohol of 119 but was alert and oriented and cooperative but guided Center requested alcohol level of less than 100 for evaluation. Patient had 1 L of normal saline and blood alcohol dropped to 77. Patient was evaluated by tele psych and had criteria for inpatient admission. Patient developed more and treated with Ativan 1 mg IV with improvement of his symptoms. [facility] [place] accepted patient at 1642 but because of long distance of 6 [address] between [facility] and [place] no EMS was available for today. Dr. Myrick accepted admission at 1707 for observation with diagnosis of DT and suicidal ideation. Patient was cooperative and calm while he was in ER. Dragon Disclaimer Dragon Disclaimer This electronic medical record was generated, in whole or in part, using a voice recognition dictation system. Departure Departure: Impression: Primary Impression: Suicidal ideation Additional Impressions: Delirium tremens Alcohol abuse Tobacco abuse Disposition: 09 ADMITTED INPATIENT ([id number]) Condition: IMPROVED Referrals: PCP,NO (PCP) Problem Qualifiers HEYDI HECK MD Apr 27, 2018 17:10
[2018-04-27] MEDS ORDERED: LORazepam 1 MG TABLET PO PRN ×2 (17:45)
[2018-04-27] MEDS ORDERED: diphenhydrAMINE 50 MG/ML VIAL IVP PRN (17:45)
[2018-04-27] MEDS ORDERED: HALOPERIDOL LACT 5 MG/ML VIAL. IM PRN (17:45)
[2018-04-27] MEDS ORDERED: cloNIDine HCL 0.1 MG TABLET PO PRN (17:45)
[2018-04-27] MEDS ORDERED: LORazepam 2 MG/ML VIAL IV PRN (17:45)
[2018-04-27 18:14] VITALS: BP 133/87
[2018-04-27] MEDS: LORazepam 2 MG/ML VIAL IV PRN ×2 (18:17→22:39)
[2018-04-27] MEDS: NICOTINE 21MG PATCH. TD SCH (19:44)
[2018-04-27 22:43] VITALS: BP 131/88
[2018-04-28] MEDS: LORazepam 2 MG/ML VIAL IV PRN ×2 (03:30→07:30)
[2018-04-28 05:30] VITALS: BP 144/91
[2018-04-28 06:13] LABS: BASO % 0 % (0-3); EOS # 0.1 x10^3/uL (0.0-0.7); EOS % 1 % (0-3); HEMATOCRIT 47.4 % (39.0-53.0); HEMOGLOBIN 16.3 g/dL (13.0-17.5); LYMPH # 1.8 x10^3/uL (1.0-4.8); LYMPH % 18 % (24-48); MEAN CORPUSCULAR HEMOGLOBIN 33 pg (25-35); MEAN CORPUSCULAR HGB CONC 34 g/dL (31-37); MEAN CORPUSCULAR VOLUME 97 fL (79-100); MONO # 1.1 x10^3/uL (0.0-1.1); MONO % 12 % (0-9); NEUT # 6.6 x10^3uL (1.8-7.7); NEUT % 68 % (31-73); PLATELET COUNT 204 x10^3/uL (140-400); RED BLOOD COUNT 4.89 x10^6/uL (4.30-5.70); RED CELL DISTRIBUTION WIDTH 14.6 % (11.5-14.5); WHITE BLOOD COUNT 9.7 x10^3/uL (4.0-11.0)
[2018-04-28 06:16] LABS: ALBUMIN 3.1 g/dL (3.4-5.0); ALBUMIN/GLOBULIN RATIO 1.2 (1.0-1.7); CALCIUM 8.1 mg/dL (8.5-10.1); CREATININE 0.9 mg/dL (0.7-1.3); GFR 87.3; MAGNESIUM 1.9 mg/dL (1.8-2.4); POTASSIUM 3.4 mmol/L (3.5-5.1); TOTAL BILIRUBIN 0.9 mg/dL (0.2-1.0); TOTAL PROTEIN 5.7 g/dL (6.4-8.2)
[2018-04-28] MEDS: NICOTINE 21MG PATCH. TD SCH (09:00)
== END 2018-04-28 09:40 | disposition left against medical advice (07) | DRG 894 ==
LOC: ER 10:29 → 1 SOUTH 17:40
PROVIDERS: ADMIT Neuromusculoskeletal Medicine & OMM; ATTEND Neuromusculoskeletal Medicine & OMM
DX: F10.231 Alcohol dependence with withdrawal delirium (principal); R45.851 Suicidal ideations; I10 Essential (primary) hypertension; Z53.21 Procedure and treatment not carried out due to patient leaving prior to being seen by health care provider; F41.9 Anxiety disorder, unspecified; F31.9 Bipolar disorder, unspecified; F17.210 Nicotine dependence, cigarettes, uncomplicated
CPT/HCPCS: 36415; 80048; 80053; 80076; 80307; 81001; 83735; 85025; 85610; 85730; 93005; 96361; 96374; G0480; G6039; J2060; 82003; 99285-25; G0479; J7030